=== PATIENT | female | born 1935 | race Caucasian/White ===

== ENCOUNTER → 2016-11-11 | Outpatient (CLI) | payer MEDICARE ==
[~2016-11-11] MED LIST: AFEDITAB PO; ARIMIDEX1 MG PO; ATENOLOL PO; CALTRATE-600/VI1 TA1 PO; METFORMIN HCL500 M1 PO; PERCOCET5/325 PO; PRINIVIL5 MG PO
--- NOTE | ~2016-11-11 | MY26 ---
[facility] A Service of [facility] RADIOLOGY TEXT RESULTS PATIENT: AMALIA DAI LOCATION: [facility] : 37 UNIT #: [id number] AGE: [address]: Peterson Pinto MD SEX: F ORDER DR: [id number] [facility]. [place], [place] [address] [id number] O MR#: [id number] Acc #: [id number] NAME: AMALIA DAI : 1935 SEX: F STUDY DATE/TIME: 11/11/2016 9:04 UNIT: [facility] ROOM: STUDY DESCRIPTION: [facility] DIAGNOSTIC W/ CAD BILAT Attending Physician: Peterson Pinto M.D. Referring Physician: Peterson Pinto M.D. Ordering Physician: Peterson Pinto M.D. Primary Care Physician: Peterson Pinto M.D. MEDICAL IMAGING REPORT This report is preliminary unless electronic signature is present EXAM Bilateral digital diagnostic mammogram with CAD. COMPARISON October 23, 2015, September 30, 2014, September 12, 2013, August 31, 2012, August 21., 2011, November 18, 2010, September 21, 2010, September 13, 2010, February 13, 2009, and March 16, 2007, as well as December 07, 2005. INDICATION 81-year-old female with a history of left breast cancer treated with lumpectomy and adjuvant radiation in 2010. Patient denies current complaints and presents for yearly followup of breast cancer. FINDINGS There are scattered fibroglandular densities. There is stable postradiation skin thickening of the left breast. There are no suspicious findings in either breast. IMPRESSION 1. No mammographic evidence of malignancy. Continued annual screening mammography and clinical breast exam are recommended. 2. Findings and recommendations were discussed with the patient upon termination of today's exam. Patients over the age of 40 are entered into a reminder system with target due date for the next mammogram. A result letter will also be sent to the patient. BIRADS: 2 Benign finding. Dictated by... [facility] A Service [facility] RADIOLOGY TEXT RESULTS PATIENT: AMALIA DAI LOCATION: [facility] : 37 UNIT #: [id number] AGE: [address]: Peterson Pinto MD SEX: F ORDER DR: Britton Bowman M.D. THIS IS AN ELECTRONICALLY VERIFIED REPORT Britton Bowman M.D. at 11/11/2016 1:24 PM BETI/daisy TD: 11/11/2016 11:25 JOB #: [id number] MEDICAL IMAGING REPORT Page 1 of 1 COPY
== END | disposition home or self-care (01) ==
LOC: CMAM 08:40
DX: C50.912 Malignant neoplasm of unspecified site of left female breast (principal)
CPT/HCPCS: G0204